=== PATIENT | female | born 1975 | race Two or more races ===

== ENCOUNTER → 2017-10-17 | Emergency (ER) | payer OTHER ==
[2017-10-17 13:27] VITALS: BP 136/92; PULSE 110; TEMP 98.2; BMI 25.7
--- NOTE | 2017-10-17 16:27 | PDOC ---
Rapid Medical Evaluation Chief Complaint: Pain Medical Evaluation: Allergies Allergy/AdvReac Type Severity Reaction Status Date / Time No Known Allergies Allergy Verified 10/17/17 13:22 Vital Signs Temp Pulse Resp BP Pulse Ox 98.2 F 110 H 17 136/92 100 10/17/17 13:23 10/17/17 13:23 10/17/17 13:23 10/17/17 13:23 10/17/17 13:23 10/17/17 16:22 I have performed a brief in-person evaluation of this patient. The patient presents with a chief complaint of: C/o epigastric pain w/ n/v. H/ o jarda, csection, tx for hpylori on endoscopy in 02/05 w/ neg c urea breath test 05/07 Pertinent physical exam findings:Tachy w/ + ttp to epigastrium I have ordered the following: cbc/chem/lipase/upreg/ua The patient will proceed to the ED for further evaluation. 10/17/17 16:23
[2017-10-17 16:46] LABS: BASO # 0.1 #; BASO % 0.9 % (0-2.0); EOS # 0.3 #; EOS % 3.4 % (0-4.5); LYMPH # 3.1; MCH 30.5 pg (25.7-33.7); MCHC 33.1 g/dl (32.0-36.0); MONO # 0.4 #; NEUT # 3.7 #; NEUT % 49.7 % (42.8-82.8); PLATELET COUNT 247 K/MM3 (134-434); RDW 12.9 % (11.6-15.6); WHITE BLOOD COUNT 7.5 K/mm3 (4.0-10.0)
[2017-10-17 16:51] LABS: URINE APPEARANCE CLEAR; URINE BILIRUBIN NEGATIVE (NEGATIVE); URINE BLOOD 2+ (NEGATIVE); URINE COLOR LTYELLOW; URINE GLUCOSE (UA) NEGATIVE (NEGATIVE); URINE KETONE 1+ (NEGATIVE); URINE LEUK ESTERASE NEGATIVE (NEGATIVE); URINE NITRITE NEGATIVE (NEGATIVE); URINE PROTEIN NEGATIVE (NEGATIVE); URINE UROBILINOGEN NEGATIVE mg/dL (0.2-1.0)
[2017-10-17 17:10] LABS: ALBUMIN 3.8 g/dl (3.4-5.0); ANION GAP 8 (8-16); CALCIUM 8.7 mg/dL (8.5-10.1); CO2 24 mmol/L (21-32); CREATININE 0.6 mg/dL (0.55-1.02); GLUCOSE,RANDOM 96 mg/dL (74-106); SGOT/AST 17 U/L (15-37); SGPT/ALT 32 U/L (12-78)
[2017-10-17 17:12] LABS: ALK PHOS 101 U/L (45-117); BILIRUBIN,TOTAL 0.6 mg/dL (0.2-1.0); URINE MUCUS RARE; URINE RBC 24 /hpf (0-3); URINE WBC <1 /hpf (3-5)
[2017-10-17 19:07] LABS: URINE LEUK ESTERASE Negative (NEGATIVE)
== END | disposition left against medical advice (07) ==
LOC: JER 12:30 → JERFT 12:30
DX: Z53.21 Procedure and treatment not carried out due to patient leaving prior to being seen by health care provider (principal)
CPT/HCPCS: 36415; 80053; 81003; 81015; 83690; 84703; 85025; 99281-25

== ENCOUNTER 2022-11-11 10:49 | Emergency (ER) | payer OTHER ==
[2022-11-11 11:24] VITALS: BMI 35.4
[2022-11-11] MEDS ORDERED: ACETAMINOPHEN 1000 MG/100 ML BAG IVPB ONE (12:10)
[2022-11-11] MEDS ORDERED: SODIUM CHLORIDE 1,000 ML IV STA (12:10)
[2022-11-11] MEDS ORDERED: ACETAMINOPHEN INJECTION 100 ML IVPB ONE (12:31)
[2022-11-11 12:35] LABS: BASO % 0.9 % (0-2.0); EOS % 5.3 % (0-4.5); HEMATOCRIT 38.5 % (32.4-45.2); HEMOGLOBIN 12.6 GM/dL (10.7-15.3); MCH 29.9 pg (25.7-33.7); MCHC 32.9 g/dl (32.0-36.0); MEAN CELL VOLUME 91.1 fl (80-96); MEAN PLT VOLUME 7.9 fl (7.5-11.1); MONO % 6.3 % (3.8-10.2); NEUT % 37.5 % (42.8-82.8); PLATELET COUNT 305 10^3/uL (134-434); RBC 4.22 M/mm3 (3.60-5.2); WHITE BLOOD COUNT 5.1 K/mm3 (4.0-10.0)
[2022-11-11 12:49] LABS: EPI CELLS 2 /uL (0-25.1); HYALINE CASTS 0 /uL (0-3.1); PH,URINE 5.5 (5.0-8.0); URINE APPEARANCE CLEAR; URINE BACTERIA 5 /uL (0-1359); URINE BILIRUBIN NEGATIVE (NEGATIVE); URINE COLOR YELLOW; URINE GLUCOSE (UA) NEGATIVE (NEGATIVE); URINE KETONE NEGATIVE (NEGATIVE); URINE LEUK ESTERASE NEGATIVE (NEGATIVE); URINE NITRITE NEGATIVE (NEGATIVE); URINE PROTEIN NEGATIVE (NEGATIVE); URINE RBC 18 /uL (0-23.9); URINE UROBILINOGEN 0.2 mg/dL (0.2-1.0); URINE WBC 3 /uL (0-25.8)
[2022-11-11 13:03] LABS: ALBUMIN 3.7 g/dl (3.4-5.0); BLOOD UREA NITROGEN 15.7 mg/dL (7-18)
[2022-11-11 13:06] LABS: CREATININE 0.7 mg/dL (0.55-1.3)
[2022-11-11 13:07] LABS: BILIRUBIN,TOTAL 0.8 mg/dL (0.2-1)
[2022-11-11 13:08] LABS: TOT PROT 7.5 g/dl (6.4-8.2)
[2022-11-11 14:28] VITALS: BP 122/78; PULSE 76; RESP 19; TEMP 97.9
== END 2022-11-11 14:28 | disposition home or self-care (01) ==
LOC: JER 10:49
PROC: 3E0333Z Introduction of Anti-inflammatory into Peripheral Vein, Percutaneous Approach (ICD-10-PCS; principal; 2022-11-11)
PROC: 3E0337Z Introduction of Electrolytic and Water Balance Substance into Peripheral Vein, Percutaneous Approach (ICD-10-PCS; 2022-11-11)
DX: N30.10 Interstitial cystitis (chronic) without hematuria (principal)
CPT/HCPCS: 36415; 76775-TC; 80053; 81003; 84703; 85025; 87086; 99284-25

== ENCOUNTER 2023-12-06 03:52 | Day surgery (SDC) | payer OTHER ==
[2023-12-03 12:31] VITALS: BMI 28.0
[2023-12-06] MEDS ORDERED: TRANEXAMIC ACID 1000 MG/10 ML VIAL IVPUSH ONE (06:11)
[2023-12-06] MEDS: CEFAZOLIN 2 GM in DEXTROSE 5%-WATER - 100 ML IVPB ONE (06:11)
[2023-12-06] MEDS ORDERED: ceFAZolin SODIUM 1 GM VIAL ONE (06:12)
[2023-12-06] MEDS: PHENAZOPYRIDINE HCL 100 MG TABLET (FP) PO ONE (06:25)
[2023-12-06] MEDS ORDERED: ROCURONIUM BROMIDE 50 MG/5 ML SYRINGE ONE (07:13)
[2023-12-06] MEDS ORDERED: PROPOFOL 20 ML ONE (07:13)
[2023-12-06] MEDS ORDERED: LIDOCAINE HCL/PF 2% SDV 5ML VIAL ONE (07:13)
[2023-12-06] MEDS ORDERED: SUCCINYLCHOLINE CHLORIDE 200 MG/10 ML SYRINGE ONE (07:14)
[2023-12-06] MEDS ORDERED: MIDAZOLAM HCL 2 MG/2 ML SINGLE DOSE VIAL ONE (07:15)
[2023-12-06] MEDS ORDERED: SCOPOLAMINE HYDROBROMIDE 1 PATCH PATCH.TD72 ONE (07:36)
[2023-12-06] MEDS ORDERED: DEXAMETHASONE SOD PHOSPHATE 4 MG/1 ML VIAL ONE (07:57)
[2023-12-06] MEDS: ceFAZolin SODIUM 1 GM VIAL IVPB ONE (08:00)
[2023-12-06] MEDS ORDERED: ONDANSETRON 4 MG/2 ML VIAL ONE (09:30)
[2023-12-06] MEDS ORDERED: GLYCOPYRROLATE 0.2 MG/1 ML VIAL ONE (09:30)
[2023-12-06] MEDS ORDERED: KETOROLAC TROMETHAMINE 30 MG/1 ML VIAL ONE (09:30)
[2023-12-06] MEDS ORDERED: NEOSTIGMINE METHYLSULFATE 0.5 MG/1 ML - 10 ML MDV ONE (09:31)
[2023-12-06] MEDS ORDERED: ONDANSETRON 4 MG/2 ML VIAL IVPUSH PRN ×2 (10:10→10:46)
[2023-12-06] MEDS ORDERED: PROMETHAZINE HCL 25 MG/1 ML VIAL IVPB PRN (10:10)
[2023-12-06] MEDS ORDERED: BISACODYL 5 MG TABLET.DR (FP) PO PRN (10:46)
[2023-12-06] MEDS ORDERED: oxyCODONE HCL 5 MG TABLET PO PRN ×2 (10:46)
[2023-12-06] MEDS: IBUPROFEN 800 MG/8 ML IJ IVPB SCH (11:00)
[2023-12-06] MEDS: ACETAMINOPHEN 1000 MG/100 ML BAG IVPB SCH (11:00)
[2023-12-06] MEDS: LACTATED RINGERS SOLUTION 1,000 ML IV SCH (13:00)
[2023-12-06] MEDS ORDERED: CEFAZOLIN 1 GM/D5W 1 GM/50 ML BAG IVPB SCH (16:00)
[2023-12-06] MEDS: CEFAZOLIN 1 GM in DEXTROSE 5%-WATER - 50 ML IVPB SCH (16:03)
[2023-12-06 18:32] LABS: POTASSIUM 3.6 mmol/L (3.5-5.1)
[2023-12-06 18:33] LABS: CALCIUM 8.9 mg/dL (8.5-10.1); HEMATOCRIT 35.6 % (32.4-45.2); HEMOGLOBIN 12.1 GM/dL (10.7-15.3); MCH 30.5 pg (25.7-33.7); MCHC 33.9 g/dl (32.0-36.0); MEAN CELL VOLUME 89.9 fl (80-96); MEAN PLT VOLUME 8.2 fl (7.5-11.1); PLATELET COUNT 257 10^3/uL (134-434); RBC 3.96 M/mm3 (3.60-5.2); WHITE BLOOD COUNT 10.1 K/mm3 (4.0-10.0)
[2023-12-06 18:34] LABS: BLOOD UREA NITROGEN 8.5 mg/dL (7-18)
[2023-12-06 18:37] LABS: CREATININE 0.8 mg/dL (0.55-1.3)
[2023-12-06] MEDS: DOCUSATE SODIUM 100 MG CAPSULE (FP) PO PRN (22:17)
[2023-12-06] MEDS: SIMETHICONE 80 MG TAB.CHEW (FP) PO PRN (22:17)
[2023-12-07] MEDS: LEVOTHYROXINE NA 88 MCG TABLET (FP) PO SCH (06:29)
[2023-12-07 09:23] LABS: HEMATOCRIT 34.3 % (32.4-45.2); HEMOGLOBIN 11.6 GM/dL (10.7-15.3); MCH 30.6 pg (25.7-33.7); MCHC 33.9 g/dl (32.0-36.0); MEAN CELL VOLUME 90.2 fl (80-96); MEAN PLT VOLUME 8.7 fl (7.5-11.1); PLATELET COUNT 231 10^3/uL (134-434); RBC 3.81 M/mm3 (3.60-5.2); RDW 12.8 % (11.6-15.6); WHITE BLOOD COUNT 11.4 K/mm3 (4.0-10.0)
[2023-12-07 09:43] LABS: POTASSIUM 3.7 mmol/L (3.5-5.1)
[2023-12-07 09:46] LABS: CALCIUM 8.6 mg/dL (8.5-10.1)
[2023-12-07 09:47] LABS: BLOOD UREA NITROGEN 8.9 mg/dL (7-18)
[2023-12-07 09:50] LABS: CREATININE 0.7 mg/dL (0.55-1.3)
[2023-12-07] MEDS: ENOXAPARIN NA (PORCINE) 40 MG/0.4 ML DISP.SYRIN SQ SCH (10:00)
[2023-12-07] MEDS ORDERED: PANTOPRAZOLE 40 MG TABLET PO PRN (10:00)
[2023-12-07] MEDS: ACETAMINOPHEN 500 MG TABLET (FP) PO PRN (11:46)
[2023-12-07 12:09] VITALS: BP 107/70; PULSE 66; RESP 16; TEMP 98.6
== END 2023-12-07 11:50 | disposition home or self-care (01) ==
LOC: JASUSAT 03:52 → J3W 12:36 → JASUSAT 12-07 11:50
PROVIDERS: ATTEND Obstetrics & Gynecology
PROC: 0UB14ZZ Excision of Left Ovary, Percutaneous Endoscopic Approach (ICD-10-PCS; 2023-12-06)
PROC: 8E0W4CZ Robotic Assisted Procedure of Trunk Region, Percutaneous Endoscopic Approach (ICD-10-PCS; 2023-12-06)
PROC: 0UT94ZZ Resection of Uterus, Percutaneous Endoscopic Approach (ICD-10-PCS; principal; 2023-12-06 07:30)
PROC: 0UT74ZZ Resection of Bilateral Fallopian Tubes, Percutaneous Endoscopic Approach (ICD-10-PCS; 2023-12-06 07:30)
DX: D25.9 Leiomyoma of uterus, unspecified (principal); N93.9 Abnormal uterine and vaginal bleeding, unspecified; N72 Inflammatory disease of cervix uteri; N83.292 Other ovarian cyst, left side
CPT/HCPCS: 58571; 58662; S2900; 36415; 80048; 81025; 85027; 86850; 86900; 86901; 88304-TC; 88305-TC; 88307-TC; 94010; 94760; J0131